=== PATIENT | male | born 1970 | race Caucasian/White ===

== ENCOUNTER 2020-07-24 18:57 | Emergency (ER) | payer SELFPAY ==
[~2020-07-24] VITALS: Ht 170.2 cm; Wt 88.5 kg
[2020-07-24 19:10] VITALS: BP_SYST 129
[2020-07-24] MEDS ORDERED: KETOROLAC TROMETHAMINE 30 MG VIAL IVP ONE (20:15)
[2020-07-24] MEDS ORDERED: ASPIRIN 81 MG TAB.CHEW PO ONE (20:15)
[2020-07-24] MEDS ORDERED: NACL 0.9% 1,000 ML IV ONE ×2 (20:15)
[2020-07-24 21:08] LABS: BASOPHILS # (AUTO) 0.1 K/uL (0.0-0.2); BASOPHILS % (AUTO) 0.5 % (0.0-2.0); EOSINOPHILS % (AUTO) 0.1 % (0.0-4.0); HEMATOCRIT 49.6 % (36-54); HEMOGLOBIN 16.7 g/dL (14.0-18.0); LYMPHOCYTES % (AUTO) 7.2 % (20.5-51.5); MEAN CORPUSCULAR HEMOGLOBIN 29 pg (27-31); MEAN CORPUSCULAR HGB CONC 34 % (32-36); MEAN CORPUSCULAR VOLUME 86 fL (79.0-98.0); MONOCYTES # (AUTO) 0.2 K/uL (0.0-1.0); MONOCYTES % (AUTO) 1.3 % (1.7-9.3); NEUTROPHILS # (AUTO) 12.8 K/uL (1.8-7.7); NEUTROPHILS % (AUTO) 90.9 % (40.0-70.0); PLATELET COUNT (AUTO) 293 K/uL (130-430); RED BLOOD CELL COUNT(AUTO) 5.75 MIL/uL (4.2-6.2); RED CELL DISTRIBUTION WIDTH 12.7 % (9.0-15.0); WHITE BLOOD COUNT (AUTO) 14.1 K/uL (4.8-10.8)
[2020-07-24 21:23] LABS: ANION GAP 10 (5-15); CHLORIDE 105 mmol/L (98-107); CREATININE 0.87 mg/dL (0.55-1.30); GLUCOSE 130 mg/dL (70-99); POTASSIUM 4.4 mmol/L (3.5-5.1); SODIUM SERUM 143 mmol/L (136-145); UREA NITROGEN, BLOOD 7 mg/dL (8-21)
[2020-07-24 21:25] LABS: GFR AFRICAN AMERICAN 120 mL/min (>90)
[2020-07-24 21:29] LABS: ALANINE AMINOTRANSFERASE 33 U/L (12-78); ALBUMIN 4.4 g/dL (3.4-4.8); ASPARTATE AMINOTRANSFERASE 15 U/L (10-37); TOTAL BILIRUBIN 0.3 mg/dL (0.0-1.0)
[2020-07-24 22:05] VITALS: BP_SYST 129
== END 2020-07-24 22:05 | disposition home or self-care (01) ==
LOC: SED 18:57
DX: R10.9 Unspecified abdominal pain (principal); I10 Essential (primary) hypertension; E11.9 Type 2 diabetes mellitus without complications; E78.5 Hyperlipidemia, unspecified
CPT/HCPCS: 36415; 71045; 74176; 76376; 80053; 82962; 84484; 85025; 87040; 96374; 99285; J1885; J7030